=== PATIENT | female | born 1975 | race Native Hawaiian/Other Pacific Islander ===

== ENCOUNTER 2016-11-12 12:50 | Outpatient (CLI) | payer OTHER | END 2016-11-12 14:00 | disposition home or self-care (01) | LOC: MAMMO 12:50 | DX: Z12.31 Encounter for screening mammogram for malignant neoplasm of breast (principal) ==

== ENCOUNTER 2018-12-01 12:04 | Outpatient (CLI) | payer OTHER | END 2018-12-01 19:58 | disposition home or self-care (01) | LOC: LABW 12:04 | DX: R05 Cough (principal); J02.9 Acute pharyngitis, unspecified; R68.89 Other general symptoms and signs | CPT/HCPCS: 87502 ==

== ENCOUNTER 2019-02-26 11:30 | Outpatient (CLI) | payer OTHER | END 2019-02-26 20:20 | disposition home or self-care (01) | LOC: RAD 11:30 | DX: M54.9 Dorsalgia, unspecified (principal); I49.9 Cardiac arrhythmia, unspecified | CPT/HCPCS: 93005 ==

== ENCOUNTER 2020-02-22 19:09 | Emergency (ER) | payer OTHER ==
[~2020-02-22] VITALS: Ht 157.5 cm; Wt 80.3 kg
[2020-02-22 21:17] VITALS: BP 142/88; TEMP 97.9
== END 2020-02-22 21:17 | disposition home or self-care (01) ==
LOC: ED 19:09
DX: S60.052A Contusion of left little finger without damage to nail, initial encounter (principal); S66.517A Strain of intrinsic muscle, fascia and tendon of left little finger at wrist and hand level, initial encounter; W22.09XA Striking against other stationary object, initial encounter; Y93.79 Activity, other specified sports and athletics; Y92.89 Other specified places as the place of occurrence of the external cause
CPT/HCPCS: 99282; 99283

== ENCOUNTER 2022-05-30 09:56 | Day surgery (SDC) | payer OTHER | END 2022-05-30 12:08 | disposition home or self-care (01) | LOC: OR 09:56 | PROVIDERS: ATTEND Internal Medicine Gastroenterology | PROC: 0DJD8ZZ Inspection of Lower Intestinal Tract, Via Natural or Artificial Opening Endoscopic (ICD-10-PCS; principal; 2022-05-30) | DX: K57.30 Diverticulosis of large intestine without perforation or abscess without bleeding (principal); K64.8 Other hemorrhoids; Z12.11 Encounter for screening for malignant neoplasm of colon; Z80.0 Family history of malignant neoplasm of digestive organs | CPT/HCPCS: J2704; J7120 ==

== ENCOUNTER 2022-07-05 08:38 | Outpatient (CLI) | payer OTHER ==
[2022-07-05 08:49] LABS: PLATELET COUNT 224 K/uL (152-353)
[2022-07-05 08:52] LABS: POTASSIUM 4.5 mmol/L (3.6-5.2)
== END 2022-07-05 17:00 | disposition home or self-care (01) ==
LOC: LABW 08:38
PROVIDERS: ATTEND Family Medicine
DX: G89.4 Chronic pain syndrome (principal); I10 Essential (primary) hypertension; F41.9 Anxiety disorder, unspecified; E78.2 Mixed hyperlipidemia; R73.03 Prediabetes
CPT/HCPCS: 36415; 80053; 80061; 81000; 82306; 83036; 84439; 84443; 84550; 85027; 87077; 87086; 87088; 87186

== ENCOUNTER 2022-07-24 09:22 | Outpatient (CLI) | payer OTHER | END 2022-07-24 19:01 | disposition home or self-care (01) | LOC: US 09:22 | PROVIDERS: ATTEND Family Medicine | DX: R79.89 Other specified abnormal findings of blood chemistry (principal) ==